=== PATIENT | male | born 1975 | race American Indian/Alaskan Native ===

== ENCOUNTER 2020-08-17 11:34 | Outpatient (CLI) | payer OTHER ==
--- NOTE | 2020-08-17 13:21 | XRay Report ---
PELVIS ONE VIEW INDICATION / CLINICAL INFORMATION: PELVIC PAIN. COMPARISON: None available. FINDINGS: Mild degenerative changes seen in the left hip joint. There may be an old healed inferior left pubic ramus fracture. Surgical hardware is seen across the sacroiliac joints. No other significant skeletal abnormality Signer Name: Mynor Gibson MD [place]AC[place] Signed: 08/17/2020 1:17 PM Workstation Name: [email or web address]
--- NOTE | 2020-08-17 13:23 | XRay Report ---
BILATERAL STANDING KNEES ONE VIEW INDICATION / CLINICAL INFORMATION: PAIN IN UNSPECIFIED KNEE. COMPARISON: None available. FINDINGS: No significant skeletal abnormality Signer Name: Mynor Gibson MD FACR Signed: 08/17/2020 1:19 PM Workstation Name: [email or web address]
--- NOTE | 2020-08-17 13:24 | XRay Report ---
LUMBAR SPINE 5 VIEWS INDICATION / CLINICAL INFORMATION: BACK PAIN. COMPARISON: None available. FINDINGS: Surgical hardware is present across the sacroiliac joints. No other significant skeletal abnormality. Alignment is normal. Signer Name: Mynor Gibson MD FACR Signed: 08/17/2020 1:19 PM Workstation Name: [id number]
--- NOTE | 2020-08-17 13:24 | XRay Report ---
CERVICAL SPINE 6 VIEWS INDICATION / CLINICAL INFORMATION: BACK PAIN. COMPARISON: None available. FINDINGS: Narrowing of the C6-7 disc space. Mild narrowing of the C4-5 disc space. No other significant skeleta l abnormality. Alignment is normal. Signer Name: Mynor Gibson MD FAC[place] Signed: 08/17/2020 1:20 PM Workstation Name: [id number]
== END 2020-08-17 11:35 | disposition home or self-care (01) ==
LOC: XRAY 11:34
PROVIDERS: ATTEND Orthopaedic Surgery
DX: M48.02 Spinal stenosis, cervical region (principal); M16.12 Unilateral primary osteoarthritis, left hip; M54.5 Low back pain; M54.2 Cervicalgia; M25.559 Pain in unspecified hip; M25.569 Pain in unspecified knee
CPT/HCPCS: 72040; 72100; 72170; 73565